=== PATIENT | female | born 1995 | race Hispanic/Latino ===

== ENCOUNTER 2023-03-12 13:06 | Outpatient (CLI) | payer OTHER | END 2023-03-12 13:07 | disposition home or self-care (01) | LOC: CSHULT 13:06 | PROVIDERS: ATTEND Advanced Practice Midwife | DX: Z34.90 Encounter for supervision of normal pregnancy, unspecified, unspecified trimester (principal); Z3A.00 Weeks of gestation of pregnancy not specified | CPT/HCPCS: 76805 ==

== ENCOUNTER 2023-05-03 16:05 | Inpatient (IN) | payer MEDICAID, OTHER ==
[2023-05-07] MEDS ORDERED: Promethazine HCl 25 MG/ML VIAL IM PRN (21:12)
[2023-05-07] MEDS ORDERED: Lidocaine 1% (PF) 30 ML VIAL SC PRN (21:12)
[2023-05-07] MEDS ORDERED: Oxytocin 30 units/NS 500 ML 500 ML IV SCH ×2 (21:12)
[2023-05-07] MEDS ORDERED: Acetaminophen 500 MG TAB PO PRN (21:12)
[2023-05-07] MEDS ORDERED: HYDROcodone/Acetaminophen 5/325 mg Tablet PO PRN (21:12)
[2023-05-07] MEDS ORDERED: Diphenoxylate HCl/Atropine Tablet PO PRN (21:12)
[2023-05-07] MEDS ORDERED: Methylergonovine 0.2 MG/ML VIAL IM PRN (21:12)
[2023-05-07] MEDS ORDERED: Ondansetron PF 4 MG/2 ML Vial IVP PRN (21:12)
[2023-05-07] MEDS ORDERED: Misoprostol 200 MCG TAB PR PRN (21:12)
[2023-05-07] MEDS ORDERED: Ibuprofen 800 MG TAB PO PRN (21:12)
[2023-05-07] MEDS ORDERED: Carboprost 250 MCG/ML AMP IM PRN (21:12)
[2023-05-07] MEDS ORDERED: Lactated Ringer's 1,000 ML IV SCH (21:12)
[2023-05-07] MEDS ORDERED: hydrALAZINE 20 MG/ML VIAL SLOW IVP PRN (21:12)
[2023-05-07] MEDS ORDERED: Tranexamic Acid 1,000 MG/10 ML VIAL IVP PRN (21:12)
[2023-05-07 22:11] VITALS: BMI 30.1
[2023-05-07 23:18] LABS: Hematocrit 36.3 % (34.9-44.5); Hemoglobin 12.5 g/dL (12.0-15.5); Mean Corpuscular HGB CONC 34.4 g/dL (32.0-36.0); Mean Corpuscular Volume 90.1 fl (81.6-98.3); Mean Platelet Volume 10.1 fl (7.4-10.4); Platelet Count 187 10x3/uL (150-450); RBC Distribution Width 12.3 % (11.5-14.5); Red Blood Cell (RBC) Count 4.03 10x6/uL (3.90-5.03); White Blood Cell (WBC) Count 8.5 10x3/uL (3.5-10.5)
[2023-05-07 23:26] LABS: Syphilis Antibody Nonreactive (Nonreactive); Syphilis Antibody Index 0.01 S/CO (<1.00 Non-Reactive)
[2023-05-07 23:29] LABS: HBSAg Index 0.16 S/CO (0-0.99); Hep B Surf Ag - L&D Non-Reactive S/CO (NonReactive)
[2023-05-08] MEDS: Misoprostol 100 MCG TAB VAG SCH ×2 (00:40→09:40)
[2023-05-08] MEDS: fentaNYL 50 mcg/mL 1 mL Vial SLOW IVP PRN ×2 (02:08→05:54)
[2023-05-08] MEDS ORDERED: Bupivacaine PF 0.5% 30 ML VIAL ONE (08:00)
[2023-05-09] MEDS ORDERED: fentaNYL/Ropivacaine Epidural 100 ML ONE (08:26)
[2023-05-09] MEDS ORDERED: Lactated Ringer's 500 ML IV PRN (09:23)
[2023-05-09] MEDS ORDERED: Ondansetron PF 4 MG/2 ML Vial IVP PRN ×2 (09:23→23:42)
[2023-05-09] MEDS ORDERED: ePHEDrine Sulfate 50 MG/10 ML VIAL SLOW IVP PRN (09:23)
[2023-05-09] MEDS ORDERED: Naloxone HCl 0.4 mg/ml Vial IVP PRN ×2 (09:23)
[2023-05-09] MEDS ORDERED: Promethazine HCl 25 MG/ML VIAL IM PRN ×2 (09:23→23:42)
[2023-05-09] MEDS ORDERED: Moisturizing Cream (Eucerin) 113 GM JAR TOP PRN (09:23)
[2023-05-09] MEDS ORDERED: diphenhydrAMINE 50 MG/ML VIAL IVP PRN (09:23)
[2023-05-09] MEDS ORDERED: Acetaminophen 325 MG TAB PO PRN (09:23)
[2023-05-09] MEDS ORDERED: Communication Order-Pharmacy FS SCH (09:30)
[2023-05-09] MEDS ORDERED: fentaNYL 2 mcg/Ropivacaine 0.2% Epidural 100 ML CADD EPIDURAL SCH (09:30)
[2023-05-09] MEDS: Oxytocin 30 units/NS 500 ML 500 ML IV SCH ×2 (20:22→21:20)
[2023-05-09] MEDS ORDERED: Milk Of Magnesia 30 ML UDCUP PO PRN (23:42)
[2023-05-09] MEDS ORDERED: Bisacodyl 10 MG SUPP PR PRN (23:42)
[2023-05-09] MEDS ORDERED: hydrALAZINE 20 MG/ML VIAL SLOW IVP PRN (23:42)
[2023-05-09] MEDS ORDERED: diphenhydrAMINE 25 MG CAP PO PRN (23:42)
[2023-05-09] MEDS ORDERED: HYDROcodone/Acetaminophen 5/325 mg Tablet PO PRN (23:42)
[2023-05-09] MEDS ORDERED: Boostrix 0.5 ML (Tdap) VIAL (>/=7 yrs of age) IM ONE (23:42)
[2023-05-09] MEDS ORDERED: Ibuprofen 800 MG TAB PO SCH (23:45)
[2023-05-10] MEDS: Benzocaine-Menthol 82.5 ML CAN TOP PRN ×2 (00:38→22:03)
[2023-05-10] MEDS: Ferrous Sulfate 325 MG TAB PO SCH ×2 (08:03→10:05)
[2023-05-10] MEDS: Ibuprofen 800 MG TAB PO SCH ×3 (08:20→21:55)
[2023-05-10] MEDS: Docusate 100 MG CAP PO SCH ×2 (08:21→21:54)
[2023-05-10] MEDS: HYDROcodone/Acetaminophen 5/325 mg Tablet PO PRN ×3 (13:17→23:20)
[2023-05-11] MEDS: Ibuprofen 800 MG TAB PO SCH ×2 (05:22→13:18)
[2023-05-11 07:39] VITALS: BP 113/68; TEMP 97.7
[2023-05-11] MEDS: Ferrous Sulfate 325 MG TAB PO SCH (09:12)
[2023-05-11] MEDS: Docusate 100 MG CAP PO SCH (09:12)
[2023-05-11] MEDS: Misoprostol 100 MCG TAB VAG SCH (13:04)
== END 2023-05-11 18:40 | disposition home or self-care (01) | DRG 768 ==
LOC: CSHLD 05-07 21:11 → CSHPP 05-10 00:20
PROVIDERS: ADMIT Family Medicine; ATTEND Family Medicine
PROC: 10907ZC Drainage of Amniotic Fluid, Therapeutic from Products of Conception, Via Natural or Artificial Opening (ICD-10-PCS; principal; 2023-05-09)
PROC: 0DQR0ZZ Repair Anal Sphincter, Open Approach (ICD-10-PCS; 2023-05-09)
PROC: 10E0XZZ Delivery of Products of Conception, External Approach (ICD-10-PCS; 2023-05-09)
DX: O48.0 Post-term pregnancy (principal); Z37.0 Single live birth; O70.20 Third degree perineal laceration during delivery, unspecified; Z3A.40 40 weeks gestation of pregnancy
CPT/HCPCS: 36415; 51702; 85027; 86780; 86850; 86900; 86901; 87340; J2590; J3010; J7120; S0020